=== PATIENT | male | born 1945 | race Caucasian/White ===

== ENCOUNTER 2021-02-14 08:33 | Day surgery (SDC) | payer OTHER ==
[~2021-02-14] VITALS: Ht 170.2 cm; Wt 64.0 kg
[~2021-02-14 08:33] MED LIST: Acerola C500 MG PO; Aspir 8181 MG PO; Calcium Carbon500 MG PO; VITAMIN D310 MC4 PO
--- NOTE | 2021-02-14 12:43 | NUR ---
ALL AIR RELEASED FROM TR BAND. NO BLEEDING, OOZING OR HEMATOMA NOTED. PT DENIES ANY PAIN. PT AWAITING TRANSPORT TO [facility]. VSS. WILL CONTINUE TO MONITOR.
--- NOTE | 2021-02-14 14:04 | NUR ---
PT LEFT WITH [facility] FOR TRANSPORT TO [facility]. CALL TO RN TO GIVE REPORT, RN NOT AVAILABLE. REQUESTED THIS RN TO CALL BACK IN 20MINS.
--- NOTE | 2021-02-14 14:26 | NUR ---
REPORT CALLED TO DELORES QUIÑONEZ. INFORMED PTS TR BAND IS DEFLATED BUT REMAINS ON PTS R WRIST. NO BLEEDING, OOZING OR HEMATOMA NOTED AND PT DENIES ANY CP UPON DEPATRURE. RECIEVING RN DENIES ANY QUESTIONS OR CONCERNS.
== END 2021-02-14 14:00 | disposition short-term general hospital (02) ==
LOC: MHTC 08:33
PROC: B2111ZZ Fluoroscopy of Multiple Coronary Arteries using Low Osmolar Contrast (ICD-10-PCS; principal; 2021-02-14)
PROC: 4A023N7 Measurement of Cardiac Sampling and Pressure, Left Heart, Percutaneous Approach (ICD-10-PCS; principal; 2021-02-14)
DX: I25.10 Atherosclerotic heart disease of native coronary artery without angina pectoris (principal); I10 Essential (primary) hypertension; E11.9 Type 2 diabetes mellitus without complications; Z79.82 Long term (current) use of aspirin; Z79.899 Other long term (current) drug therapy
CPT/HCPCS: 76937; 93454; 99152; 99153; A9270; C1769; C1894; J1644; J2250; J3010; J7030; J7050; Q9967

== ENCOUNTER 2021-10-31 09:03 | Day surgery (SDC) | payer OTHER ==
[~2021-10-31] VITALS: Ht 167.6 cm; Wt 60.2 kg
--- NOTE | 2021-10-31 10:34 | NUR ---
Ambulatory in Day Surgery. History, Chart, Medications and Allergies reviewed before start of procedure.Patient confirms NPO status and agrees with scheduled surgery. Lungs clear T/O to Auscultation. Pre-Op teaching done. Pt verbalizes understanding. Patient States Post-Procedure ride home has been arranged. AMILCAR RN'S ATTEMPTED FOR 2ND IV, UNABLE AT THIS TIME. DISCUSSED WITH ANESTHESIA WHO REPORTED WILL HAVE 2ND IV STARTED BACK IN OR. DISCUSSED PT'S HX WITH DR SAM, (ANESTHESIA) WHO REPORTED TO HAVE EKG COMPLETED TODAY.
--- NOTE | 2021-10-31 15:19 | NUR ---
PT AXOX4, ABLE TO REPOSITION SELF IN BED. TOLERATING PO FLUIDS AND FOOD. PT HAS THREE INCISION SITES ON ABDOMEN. ONE INCISION SITE ABOVE THE UMBILICUS, ANOTHER INCISION SITE 5 INCHES LEFT LATERAL TO UMBILICUS AND ANOTHER 5 INCHES RIGHT LATERAL TO UMBILICUS, ALL THREE INCISION SITES COVERED IN DERMABOND AND THEY ARE ALL CLEAN, DRY AND INTACT - NO DRAINAGE, REDNESS, INFLAMMATION NOTED.
--- NOTE | 2021-10-31 15:36 | NUR ---
REPORT TO EMILY LINDQUIST RN. PT AXOX4, TOLERATING PO FLUIDS AND FOOD, INCISIONS SITES ON ABDOMEN ARE ALL CDI.
--- NOTE | 2021-10-31 15:52 | NUR ---
Discharge instructions reviewed with patient. Patient verbalizes understanding. Copy given to patient to take home.
--- NOTE | 2021-10-31 16:01 | NUR ---
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 HE SAYS HE CHECKS IT REGULARLY AT HOME AND IT IS USUALLY 120S OVER 60S.
--- NOTE | 2021-10-31 16:39 | NUR ---
Dressing to procedure site clean, dry, intact with no visible drainage, swelling, erythema or bruising noted. Discharged via wheelchair to private car for ride home.
== END 2021-10-31 16:41 | disposition home or self-care (01) ==
LOC: ORSCMMR 09:03 → ORD 10:30 → ORSCMMR 16:41
PROVIDERS: Surgery
PROC: 8E0W4CZ Robotic Assisted Procedure of Trunk Region, Percutaneous Endoscopic Approach (ICD-10-PCS; principal; 2021-10-31 10:30)
PROC: 0YU54JZ Supplement Right Inguinal Region with Synthetic Substitute, Percutaneous Endoscopic Approach (ICD-10-PCS; principal; 2021-10-31 10:30)
DX: K40.90 Unilateral inguinal hernia, without obstruction or gangrene, not specified as recurrent (principal); I10 Essential (primary) hypertension; E78.5 Hyperlipidemia, unspecified; I25.10 Atherosclerotic heart disease of native coronary artery without angina pectoris; E11.9 Type 2 diabetes mellitus without complications; Z79.82 Long term (current) use of aspirin
CPT/HCPCS: 49650; S2900; 82947; 93005; 93010; C1781; J0690; J1100; J2250; J2370; J2405; J2704; J3010; J7120